=== PATIENT | female | born 2000 | race African-American/Black ===

== ENCOUNTER 2023-08-13 01:41 | Emergency (ER) | payer SELFPAY ==
[~2023-08-13] VITALS: Ht 167.6 cm; Wt 70.0 kg
[2023-08-13] MEDS: LORAZEPAM 1MG TABLET PO ONE (02:15)
[2023-08-13] MEDS: SODIUM CHLORIDE 0.9% 1,000 ML IV ONE (02:15)
[2023-08-13 02:20] VITALS: BP 135/80; PULSE 88; RESP 16; TEMP 98.6; O2SAT 99
== END 2023-08-13 03:08 | disposition left against medical advice (07) ==
LOC: ER 01:41
DX: F22 Delusional disorders (principal); T78.1XXA Other adverse food reactions, not elsewhere classified, initial encounter; F41.9 Anxiety disorder, unspecified; F12.90 Cannabis use, unspecified, uncomplicated; Y92.89 Other specified places as the place of occurrence of the external cause
CPT/HCPCS: 99283; J7030